=== PATIENT | female | born 1935 | race Caucasian/White ===

== ENCOUNTER 2018-09-20 14:53 | Emergency (ER) | payer MEDICARE, OTHER ==
[~2018-09-20] VITALS: Ht 154.9 cm; Wt 68.9 kg
[2018-09-20 15:02] VITALS: Ht 154.9 cm; Wt 68.9 kg
[2018-09-20 15:59] VITALS: BP 134/60
== END 2018-09-20 15:59 | disposition home or self-care (01) ==
LOC: ED 14:53
DX: N81.10 Cystocele, unspecified (principal); N39.0 Urinary tract infection, site not specified; I10 Essential (primary) hypertension; E11.9 Type 2 diabetes mellitus without complications

== ENCOUNTER 2018-11-27 15:54 | Emergency (ER) | payer MEDICARE, OTHER ==
[~2018-11-27] VITALS: Ht 154.9 cm; Wt 67.1 kg
[2018-11-27 16:01] VITALS: Ht 154.9 cm; Wt 67.1 kg
[2018-11-27 16:53] LABS: BASOPHIL % 0.8 % (0-2); PLATELET COUNT 296 x10^3mcL (130-400)
[2018-11-27 17:12] LABS: CALCIUM 9.4 mg/dL (8.5-10.1); CARBON DIOXIDE 22.2 mmol/L (21-32); CHLORIDE SERUM 104 mmol/L (98-107); CREATININE SERUM 1.3 mg/dL (0.6-1.0); GLUCOSE SERUM 142 mg/dL (74-106); POTASSIUM SERUM 4.5 mmol/L (3.5-5.1); SODIUM SERUM 139 mmol/L (136-145)
[2018-11-27 17:17] LABS: ALBUMIN 3.8 g/dL (3.4-5.0); ALKALINE PHOSPHATASE 90 U/L (46-116); ALT/SGPT 24 U/L (14-59); AST/SGOT 20 U/L (15-37); BILIRUBIN TOTAL 0.24 mg/dL (0.20-1.00); CHOLESTEROL 162 mg/dL (<200)
[2018-11-27 17:19] LABS: TOTAL PROTEIN, SERUM 8.4 g/dL (6.4-8.2)
[2018-11-27 19:48] VITALS: BP 146/79
== END 2018-11-27 19:48 | disposition home or self-care (01) ==
LOC: ED 15:54
PROVIDERS: Specialist
DX: S30.0XXA Contusion of lower back and pelvis, initial encounter (principal); S50.812A Abrasion of left forearm, initial encounter; S50.811A Abrasion of right forearm, initial encounter; E11.22 Type 2 diabetes mellitus with diabetic chronic kidney disease; I12.9 Hypertensive chronic kidney disease with stage 1 through stage 4 chronic kidney disease, or unspecified chronic kidney disease; N18.9 Chronic kidney disease, unspecified; I25.2 Old myocardial infarction; Z90.89 Acquired absence of other organs; R42 Dizziness and giddiness; W18.30XA Fall on same level, unspecified, initial encounter; Y93.89 Activity, other specified; Y92.89 Other specified places as the place of occurrence of the external cause; Y99.8 Other external cause status
CPT/HCPCS: 36415; 90715; G0480

== ENCOUNTER 2019-02-22 17:48 | Emergency (ER) | payer MEDICARE, OTHER ==
[~2019-02-22] VITALS: Ht 152.4 cm; Wt 68.5 kg
[2019-02-22 17:58] VITALS: Ht 152.4 cm; Wt 68.5 kg
[2019-02-22 22:10] VITALS: BP 146/74
== END 2019-02-22 22:10 | disposition home or self-care (01) ==
LOC: ED 17:48
DX: S40.011A Contusion of right shoulder, initial encounter (principal); Z86.73 Personal history of transient ischemic attack (TIA), and cerebral infarction without residual deficits; Z90.49 Acquired absence of other specified parts of digestive tract; W06.XXXA Fall from bed, initial encounter; Y93.89 Activity, other specified; Y92.89 Other specified places as the place of occurrence of the external cause; Y99.8 Other external cause status
CPT/HCPCS: J1885

== ENCOUNTER 2019-03-14 13:42 | Emergency (ER) | payer MEDICARE, OTHER ==
[~2019-03-14] VITALS: Ht 149.9 cm; Wt 49.9 kg
[2019-03-14 13:47] VITALS: Ht 149.9 cm; Wt 49.9 kg
[2019-03-14 14:58] VITALS: BP 1222/71
== END 2019-03-14 15:08 | disposition home or self-care (01) ==
LOC: ED 13:42
DX: R42 Dizziness and giddiness (principal); R53.1 Weakness; R11.0 Nausea; R10.9 Unspecified abdominal pain; I10 Essential (primary) hypertension; Z86.73 Personal history of transient ischemic attack (TIA), and cerebral infarction without residual deficits; Z90.49 Acquired absence of other specified parts of digestive tract

== ENCOUNTER 2019-06-20 14:54 | Emergency (ER) | payer MEDICARE, OTHER ==
[~2019-06-20] VITALS: Ht 152.4 cm; Wt 68.0 kg
[2019-06-20 14:54] VITALS: Ht 152.4 cm; Wt 68.0 kg
[2019-06-20 16:17] LABS: CALCIUM 8.9 mg/dL (8.5-10.1); CARBON DIOXIDE 30.1 mmol/L (21-32); CHLORIDE SERUM 98 mmol/L (98-107); CREATININE SERUM 1.1 mg/dL (0.6-1.0); GLUCOSE SERUM 193 mg/dL (74-106); POTASSIUM SERUM 3.4 mmol/L (3.5-5.1); SODIUM SERUM 136 mmol/L (136-145)
[2019-06-20 16:21] LABS: BASOPHIL % 0.3 % (0-2); PLATELET COUNT 227 x10^3mcL (130-400); RED CELL DISTRIBUTION WIDTH 13.4 % (11.5-14.5)
[2019-06-20 16:22] LABS: ALBUMIN 3.4 g/dL (3.4-5.0); ALKALINE PHOSPHATASE 120 U/L (46-116); ALT/SGPT 61 U/L (14-59); AST/SGOT 123 U/L (15-37); BILIRUBIN TOTAL 0.7 mg/dL (0.20-1.00); LIPASE 155 IU/L (73-393); TOTAL PROTEIN, SERUM 7.6 g/dL (6.4-8.2)
[2019-06-20 18:22] LABS: UA SPECIFIC GRAVITY <=1.005 (1.005-1.035); microscopic required? YES; urine erythrocyte 1+ (NEGATIVE)
[2019-06-20 19:07] VITALS: BP 156/67
[2019-06-24 13:05] LABS: nortriptyline(amit metabolite) < 20 ng/mL (Not Estab.)
== END 2019-06-20 19:07 | disposition home or self-care (01) ==
LOC: ED 14:54
PROVIDERS: Emergency Medicine
DX: K52.9 Noninfective gastroenteritis and colitis, unspecified (principal); I10 Essential (primary) hypertension; E11.9 Type 2 diabetes mellitus without complications; I25.2 Old myocardial infarction; Z90.49 Acquired absence of other specified parts of digestive tract
CPT/HCPCS: 80335; J2270; J2405; J7040; Q0092; Q9967